=== PATIENT | female | born 1940 | race Caucasian/White ===

== ENCOUNTER → 2016-06-02 | Outpatient (CLI) | payer OTHER ==
[~2016-06-02] MED LIST: AMLO-110 PO; AMLO2.5T PO; ASPEC81 PO; ASPI325T39 PO; ASPI81TA28 PO; ATEN-173 PO; ATOR-24 PO; CALC-393 PO; CARB0.5D28 OPB; CHOL2000 PO; HYDR12.55 PO; HYDR1LOT6 EXT; LISI-461 PO; LSN20 PO; MAGNESIUM 64 PO; MAGNTAB4 PO; MULT-506 PO; OMEG10007 PO; OMEGCAP2 PO; POTA1TAB PO; POTA550T4 PO; RXC5 PO; [UNRECOGNIZED DRUG - CODE] TOP
[2016-06-02 12:21] LABS: BASO % 0.4 %; BASO ABS # 0.03 K/uL (0-0.2); COMPLETE YES; EOS % 0.7 %; HEMATOCRIT 38.6 % (37-47); IG% 0.1 %; LYMPH % 26.7 %; LYMPH ABS # 2.01 K/uL (1.2-3.4); MEAN CORPUSCULAR HEMOGLOBIN 31.8 pg (25-34); MEAN CORPUSCULAR HGB CONC 33.2 g/dl (32-36); MEAN PLATELET VOLUME 11.5 fL (7.4-10.4); MONO % 10.5 %; NEUT % 61.6 %; PLATELET COUNT 284 K/uL (130-400); RED BLOOD COUNT 4.02 M/uL (4.2-5.4); WHITE BLOOD COUNT 7.53 K/uL (4.8-10.8)
[2016-06-02 12:53] LABS: ALT/SGPT 29 U/L (12-78); AST/SGOT 26 U/L (15-37); BLOOD UREA NITROGEN 19 mg/dl (7-18); BUN/CREATININE RATIO 22.9 (10-20); CALCIUM 8.7 mg/dl (8.5-10.1); CARBON DIOXIDE 29 mmol/L (21-32); CHLORIDE 102 mmol/L (98-107); CREATININE 0.82 mg/dl (0.60-1.20); GLUCOSE 93 mg/dl (70-99); MAGNESIUM 1.9 mg/dl (1.8-2.4); POTASSIUM 3.7 mmol/L (3.5-5.1); SODIUM 139 mmol/L (136-145)
[2016-06-02 12:59] LABS: ALKALINE PHOSPHATASE 81 U/L (45-117); CHOLESTEROL 143 mg/dl (0-200); CHOLESTEROL/HDL RATIO 2.9; HDL CHOLESTEROL 49 mg/dl; LDL CHOLESTEROL CALCULATED 73 mg/dl; TRIGLYCERIDES 105 mg/dl (0-150); VERY LOW DENSITY LIPOPROT CALC 21 mg/dl
== END | disposition home or self-care (01) ==
LOC: C.LABPVFM 09:22
PROVIDERS: ATTEND Family Medicine
DX: I10 Essential (primary) hypertension (principal); E83.42 Hypomagnesemia; E87.8 Other disorders of electrolyte and fluid balance, not elsewhere classified; E78.5 Hyperlipidemia, unspecified

== ENCOUNTER → 2016-08-27 | Outpatient (CLI) | payer OTHER ==
--- NOTE | 2016-08-27 13:11 | MAMMOGRAPHY REPORT ---
BILATERAL DIGITAL SCREENING MAMMOGRAM WITH CAD: 08/27/2016 CLINICAL HISTORY: Routine screening. Patient has no complaints. TECHNIQUE: Current study was also evaluated with a Computer Aided Detection (CAD) system. Bilatera l CC and MLO views were obtained. COMPARISON: Comparison is made to exams dated: 08/26/2015 mammogram, 08/22/2014 mammogram, 03/03/2012 mammogram, 03/02/2011 mammogram, 02/24/2010 mammogram - [facility], and 01/08/2009. BREAST COMPOSITION: There are scattered areas of fibroglandular density in both breasts. FINDINGS: No suspicious masses, calcifications, or areas of architectural distortion are noted in e ither breast. There has been no significant interval change compared to prior exams. IMPRESSION: ACR BI-RADS CATEGORY 1: NEGATIVE There is no mammographic evidence of malignancy. A 1 year screening mammogram is recommended. The p atient will receive written notification of the results. Approximately 10% of breast cancers are not detected with mammography. A negative mammographic repor t should not delay biopsy if a clinically suggestive mass is present. Kaylie Lomeli M.D. /:08/27/2016 12:16:46 Head Of Marketing: Jose Angel YIN(Daryn)(Brenda), [facility] letter sent: Normal 1/2 BI-RADS Code: ACR BI-RADS Category 1: Negative
== END | disposition home or self-care (01) ==
LOC: C.MAMM 08:48
PROVIDERS: ATTEND Family Medicine
DX: Z12.31 Encounter for screening mammogram for malignant neoplasm of breast (principal)

== ENCOUNTER → 2016-12-30 | Outpatient (CLI) | payer OTHER ==
[~2016-12-30] MED LIST changes: -AMLO-110 PO; -ASPI325T39 PO; -ASPI81TA28 PO; -CARB0.5D28 OPB; -CHOL2000 PO; -HYDR12.55 PO; -LISI-461 PO; -MAGNESIUM 64 PO; -OMEG10007 PO; -POTA550T4 PO; -RXC5 PO
[2016-12-30 12:54] LABS: ALT/SGPT 26 U/L (12-78); AST/SGOT 22 U/L (15-37); BLOOD UREA NITROGEN 16 mg/dl (7-18); BUN/CREATININE RATIO 20.6 (10-20); CALCIUM 8.7 mg/dl (8.5-10.1); CARBON DIOXIDE 31 mmol/L (21-32); CHLORIDE 102 mmol/L (98-107); CREATININE 0.78 mg/dl (0.60-1.20); GLUCOSE 94 mg/dl (70-99); MAGNESIUM 1.8 mg/dl (1.8-2.4); SODIUM 138 mmol/L (136-145)
[2016-12-30 12:59] LABS: ALB/GLOB RATIO 1.1 (0.9-2); ALKALINE PHOSPHATASE 67 U/L (45-117); CHOLESTEROL 119 mg/dl (0-200); CHOLESTEROL/HDL RATIO 2.8; HDL CHOLESTEROL 42 mg/dl; LDL CHOLESTEROL CALCULATED 64 mg/dl; TRIGLYCERIDES 64 mg/dl (0-150); VERY LOW DENSITY LIPOPROT CALC 13 mg/dl
== END | disposition home or self-care (01) ==
LOC: C.LABPVFM 09:08
PROVIDERS: ATTEND Family Medicine
DX: E78.5 Hyperlipidemia, unspecified (principal); I10 Essential (primary) hypertension; E87.8 Other disorders of electrolyte and fluid balance, not elsewhere classified; E83.42 Hypomagnesemia

== ENCOUNTER → 2017-04-19 | Outpatient (CLI) | payer OTHER ==
[~2017-04-19] MED LIST changes: +AMLO-110 PO; -AMLO2.5T PO; -ASPEC81 PO; +ASPI325T39 PO; +ASPI81TA28 PO; +CARB0.5D28 OPB; +CHOL2000 PO; +HYDR12.55 PO; -HYDR1LOT6 EXT; +LISI-461 PO; -LSN20 PO; +MAGNESIUM 64 PO; -MAGNTAB4 PO; +OMEG10007 PO; -OMEGCAP2 PO; -POTA1TAB PO; +POTA550T4 PO
== END | disposition home or self-care (01) ==
LOC: C.LABPVFM 10:50
PROVIDERS: ATTEND Family Medicine
DX: E87.6 Hypokalemia (principal)

== ENCOUNTER 2017-04-27 09:38 | Inpatient (IN) | payer OTHER ==
[2017-04-06 12:15] VITALS: BMI 21.0
--- NOTE | 2017-04-06 12:52 | PAT Medication Instructions ---
Service Date Apr 06, 2017. Current Home Medication List Amlodipine (Norvasc), 5 MG PO QAM Aspirin (Aspirin Ec), 81 MG PO QPM Aspirin (Aspirin Ec), 325-650 MG PO PRN Atenolol (Tenormin), 50 MG PO QAM Atorvastatin (Lipitor), 40 MG PO HS Calcium Carbonate (Calcium), 600 MG PO BID Carboxymethylcellulose Sodium (Refresh Tears), 1 DROP OPB PRN Cholecalciferol (Vitamin D3), 1 CAP PO 2XWEEK Fish Oil ([place]-3), 1 CAP PO TID Hydrochlorothiazide (Hydrochlorothiazide), 1 TAB PO QAM Lisinopril (Zestril), 10 MG PO BID Metronidazole (Metrolotion), 1 APPLN TOP BID PRN for PRN Multivitamin (Multivitamin), 1 TAB PO QAM Potassium Gluconate (Potassium Gluconate), 550 MG PO QAM [Magnesium 64], 1 TAB PO QAM Medication Instructions For Your Scheduled Surgery - Hold the following medications 2 weeks prior to surgery: Fish Oil ([place]-3), 1 CAP PO TID - Hold the following medications 7 days prior to surgery per surgeon's instructions: Aspirin (Aspirin Ec), 325-650 MG PO PRN - Hold the following medications 24 hours prior to surgery: Lisinopril (Zestril), 10 MG PO BID Metronidazole (Metrolotion), 1 APPLN TOP BID PRN for PRN - Hold the following medications the morning of surgery: Calcium Carbonate (Calcium), 600 MG PO BID Multivitamin (Multivitamin), 1 TAB PO QAM Potassium Gluconate (Potassium Gluconate), 550 MG PO QAM [Magnesium 64], 1 TAB PO QAM Cholecalciferol (Vitamin D3), 1 CAP PO 2XWEEK Hydrochlorothiazide (Hydrochlorothiazide), 1 TAB PO QAM - Take the following medications the morning of surgery with a sip of water OTHERWISE NOTHING TO EAT OR DRINK AFTER MIDNIGHT: Atenolol (Tenormin), 50 MG PO QAM Amlodipine (Norvasc), 5 MG PO QAM Carboxymethylcellulose Sodium (Refresh Tears), 1 DROP OPB PRN - Take the following medications as scheduled the night before surgery: Aspirin (Aspirin Ec), 81 MG PO QPM Atorvastatin (Lipitor), 40 MG PO HS Calcium Carbonate (Calcium), 600 MG PO BID Carboxymethylcellulose Sodium (Refresh Tears), 1 DROP OPB PRN If you have any questions please call us at [phone] or [phone] or [phone]
[2017-04-06 13:12] LABS: BASO % 0.3 %; BASO ABS # 0.02 K/uL (0-0.2); COMPLETE YES; HEMATOCRIT 39.7 % (37-47); IG% 0.3 %; LYMPH ABS # 2.24 K/uL (1.2-3.4); MEAN CELL VOLUME 97.3 fL (80-100); MEAN CORPUSCULAR HEMOGLOBIN 32.8 pg (25-34); MEAN CORPUSCULAR HGB CONC 33.8 g/dl (32-36); MEAN PLATELET VOLUME 10.3 fL (7.4-10.4); MONO % 8.1 %; NEUT % 62.3 %; PLATELET COUNT 262 K/uL (130-400); RED BLOOD COUNT 4.08 M/uL (4.2-5.4)
[2017-04-06 13:35] LABS: URINE APPEARANCE CLEAR (CLEAR); URINE BILIRUBIN NEG (NEG); URINE COLOR YELLOW; URINE EPITHELIAL CELL AUTO 0-5 /lpf (0-5); URINE NITRITE NEG (NEG); URINE PH 7.5 (4.5-7.5); URINE SPECIFIC GRAVITY 1.013 (1.000-1.030); UROBILINOGEN NEG (NEG); ZZUR CULT IF INDIC CLEAN CATCH NO
[2017-04-06 13:40] LABS: MANUAL MICROSCOPIC REQUIRED? NO; REVIEW REQ? NO
--- NOTE | 2017-04-06 13:59 | DIAGNOSTIC IMAGING REPORT ---
CHEST PREADMISSION(PA/LAT) HISTORY: 77 years-old Female PAT preoperative exam. No acute chest complaints. COMPARISON: Chest radiograph 03/28/2016 TECHNIQUE: PA and lateral views of the chest FINDINGS: Cardiac silhouette is upper limits of normal, unchanged. Atherosclerosis of the aorta. No pneumothorax, pleural effusion, focal airspace consolidation or overt pulmonary edema. Mild hyperinflation. Bones of the chest are grossly intact. Degenerative changes are seen about the shoulders and spine. IMPRESSION: No acute cardiopulmonary process. The above report was generated using voice recognition software. It may contain grammatical, syntax or spelling errors. Electronically signed by: Eleazar Coyne M.D. 04/06/2017 1:58 PM Dictated Date/Time: 04/06/2017 1:56 PM
[2017-04-06 15:43] LABS: BUN/CREATININE RATIO 16.9 (10-20); CALCIUM 8.9 mg/dl (8.5-10.1); CREATININE 0.85 mg/dl (0.60-1.20); POTASSIUM 3.3 mmol/L (3.5-5.1)
[~2017-04-27] VITALS: Ht 154.9 cm; Wt 53.0 kg
[2017-04-27] VITALS (10 sets, daily range): BP systolic 116–169; BP diastolic 64–90; PULSE 57–99; TEMP 33.7–36.8; O2SAT 94–100; Ht 154.9 cm; Wt 53.0 kg
[~2017-04-27 09:38] MED LIST changes: +ATROPINE SULFATE 0.1 MG/ML 5ML SYR IV PRN; +CEFAZOLIN 1000MG IV PUSH 5 ML IV SCH; +EpHEDrine SULFATE INJ 50 MG/ML AMP IV PRN; +FENTANYL CITRATE INJ 50 MCG/1 ML 2 ML VIAL IV PRN; +HYDROmorphone INJ 1 MG/ML SYR IV PRN; +LACTATED RINGER'S 1000ML 1,000 ML IV SCH; +ONDANSETRON INJ 2 MG/ML 2 ML VIAL IV PRN
--- NOTE | 2017-04-27 11:16 | History & Physical Bridge Note ---
H&P Re-Evaluation Bridge Note: I have examined the patient, reviewed the History & Physical and in the interval since the performance of the History & Physical I have noted the following changes of clinical significance: No changes noted
--- NOTE | 2017-04-27 11:17 | History and Physical ---
History & Physical Date Apr 27, 2017. Chief Complaint Back and leg pain History of Present Illness The patient is a 77 year old female with complaints of James leg pain Past Medical/Surgical History Medical Problems: (1) Cataract removal (2) Diverticulosis (3) HTN (hypertension) (4) TIA (transient ischemic attack) Additional History Hepatic Disease: No Endocrine Disorder: No Kidney Disease: No Hypertension: Yes Heart Disease: No Bleeding Tendencies: No Infectious Diseases: No Allergies Coded Allergies: Adhesives (Verified Allergy, Unknown, RED SKIN WITH TAPE, 04/06/17) Sulfa Antibiotics (Verified Adverse Reaction, Unknown, nausea, 04/06/17) Home Medications Scheduled Amlodipine (Norvasc), 5 MG PO QAM Aspirin (Aspirin Ec), 81 MG PO QPM Atenolol (Tenormin), 50 MG PO QAM Atorvastatin (Lipitor), 40 MG PO HS Calcium Carbonate (Calcium), 600 MG PO BID Carboxymethylcellulose Sodium (Refresh Tears), 1 DROP OPB PRN Cholecalciferol (Vitamin D3), 1 CAP PO 2XWEEK Fish Oil ([place]-3), 1 CAP PO TID Hydrochlorothiazide (Hydrochlorothiazide), 1 TAB PO QAM Lisinopril (Zestril), 10 MG PO BID Multivitamin (Multivitamin), 1 TAB PO QAM Potassium Gluconate (Potassium Gluconate), 550 MG PO QAM [Magnesium 64], 1 TAB PO QAM Scheduled PRN Metronidazole (Metrolotion), 1 APPLN TOP BID PRN for PRN Physical Examination Skin: warm/dry, no rash Eyes: normal inspection, EOMI, sclerae normal ENT: normal ENT inspection, pharynx normal Head: normocephalic, atraumatic Neck: supple, no adenopathy, trachea midline Respiratory/Chest: lungs clear, normal breath sounds, no respiratory distress Cardiovascular: regular rate, rhythm, no edema, no murmur Abdomen / GI: normal bowel sounds, non tender Back: normal inspection Extremities: normal inspection, normal range of motion Neurologic/Psych: no motor/sensory deficits, alert, normal reflexes, oriented x 3 Diagnosis Lumbar spinal stenosis with spondylolisthesis Plan of Treatment L4 5 lumbar decompression and fusion
[2017-04-27] MEDS ORDERED: BACITRACIN 50000 UNIT VIAL ONE (11:43)
[2017-04-27] MEDS ORDERED: BUPIVACAINE/EPINEPHRINE 0.5% MPF 1:200,000 30 ML VIAL ONE (11:43)
[2017-04-27] MEDS ORDERED: MIDAZOLAM HCL 1 MG/ML 2ML VIAL ONE (11:47)
[2017-04-27] MEDS ORDERED: FENTANYL CITRATE INJ 50 MCG/1 ML 2 ML VIAL ONE ×2 (11:47→12:23)
[2017-04-27] MEDS ORDERED: HYDROmorphone INJ 2 MG/ML SYR/VIAL ONE ×2 (12:23→13:30)
[2017-04-27] MEDS ORDERED: LIDOCAINE HCL 2% 2 ML VIAL (20MG/ML) ONE (13:17)
[2017-04-27] MEDS ORDERED: ONDANSETRON INJ 2 MG/ML 2 ML VIAL ONE ×2 (13:17→13:32)
[2017-04-27] MEDS ORDERED: PROPOFOL IV EMULSION 10 MG/ML 20 ML VIAL IV ONE (13:17)
[2017-04-27] MEDS ORDERED: DEXAMETHASONE SOD INJ 4 MG/ML VIAL ONE (13:17)
[2017-04-27] MEDS ORDERED: SODIUM CHLORIDE 0.9% 1000ML 1,000 ML IV SCH (13:27)
[2017-04-27] MEDS ORDERED: FLOSEAL HEMOSTATIC MATRIX 10ML TOP ONE (13:29)
[2017-04-27] MEDS ORDERED: CEFAZOLIN IV 1,000 MG in DEXTROSE 5% 50ML 50 ML IV SCH (13:30)
[2017-04-27] MEDS ORDERED: PROMETHAZINE HCL INJ 12.5 MG in SODIUM CHLORIDE 0.9% 50ML 50 ML IV PRN (13:30)
[2017-04-27] MEDS ORDERED: NALOXONE HCL 0.4 MG/1 ML VIAL/CARP IV PRN ×2 (13:30)
[2017-04-27] MEDS ORDERED: ALUMINUM/MAGNESIUM SUSP 30 ML UDC PO PRN (13:30)
[2017-04-27] MEDS ORDERED: hydrOXYzine HCL 25 MG TAB PO PRN (13:30)
[2017-04-27] MEDS ORDERED: LORAZEPAM 0.5 MG TAB PO PRN (13:30)
[2017-04-27] MEDS ORDERED: SOD PHOSPHATE/SOD BIPHOSPHATE ENEMA 132 ML BTL PR PRN (13:30)
[2017-04-27] MEDS ORDERED: ONDANSETRON INJ 2 MG/ML 2 ML VIAL IV PRN (13:30)
[2017-04-27] MEDS ORDERED: FAMOTIDINE 20 MG TAB PO PRN (13:30)
[2017-04-27] MEDS ORDERED: LORAZEPAM INJ 0.5 MG in SYRINGE 0.75 ML IV PRN (13:30)
[2017-04-27] MEDS ORDERED: DO NOT ADMINISTER PNEUMOCOCCAL VACCINE PRN ×2 (13:30)
[2017-04-27] MEDS ORDERED: METOCLOPRAMIDE HCL INJ 5 MG/ML 2 ML VIAL IV PRN (13:30)
[2017-04-27] MEDS ORDERED: MAGNESIUM HYDROXIDE SUSP 30 ML UDC PO PRN (13:30)
[2017-04-27] MEDS ORDERED: DO NOT ADMINISTER FLU VACCINE PRN ×3 (13:30)
[2017-04-27] MEDS ORDERED: BISACODYL 10 MG SUPP PR PRN (13:30)
[2017-04-27] MEDS ORDERED: ACETAMINOPHEN IV 100 ML IV PRN (13:30)
[2017-04-27] MEDS ORDERED: PHENYLEPHRINE 100MCG/ML 5ML SYR ONE (13:32)
[2017-04-27] MEDS ORDERED: KETOROLAC TROMETHAMINE 30 MG/ML VIAL ONE (13:32)
[2017-04-27] MEDS ORDERED: GLYCOPYRROLATE INJ 0.2 MG/ML VIAL ONE (13:32)
[2017-04-27] MEDS ORDERED: NEOSTIGMINE METHYLSULFATE 1 MG/ML 10ML VIAL ONE (13:32)
--- NOTE | 2017-04-27 13:35 | [facility] Operative Report ---
Operative Report Operative Date Apr 27, 2017. Pre-Operative Diagnosis Lumbar Spinal Stenosis with Spondylolisthesis Post-Operative Diagnosis Lumbar Spinal Stenosis with Spondylolisthesis Procedure(s) Performed #1 lumbar decompression medial facetectomies foraminotomies L3 4 L4 5. #2 history spinal fusion L4 5. #3 placement posterior instrumentation L4 5. #4 interbody fusion L4 5. #5 placement peek cage 12 x 22 mm L4 5. #6 placement of locally harvested morcellized autograft in the posterior lateral gutters. #7 placement infuse collagen sponge combined Master graft in the posterior lateral gutters and ostial amp bone graft in the interbody space. Surgeon Dr. Alvares Brush Painter Surgeon(s) LEONARDO Johnson Estimated Blood Loss 120mL Findings Severe spinal stenosis spinal listhesis with herniated nucleus pulposus Specimens none per surgeon Description of Procedure Patient was met with preoperatively case discussed all questions addressed. After informed consent was obtained patient was taken operative suite underwent intubation placed in a prone position on the Sandeep table on top Fran frame. All bony prominences were well-padded eyes inspected to ensure no external pressure placed upon them. This point the lumbar spines prepped draped in normal sterile fashion. Sharp dissection with the assistance of Bovie cautery was performed onto an exposing the lamina and transverse processes of L4 and L5. From a caudal cephalad fashion complete laminectomy of L4 partial laminectomy of L3 was performed addressing severe lateral recess and foraminal disease including foraminal disc herniation on the right. After complete decompression pedicle screws were placed in L4-L5 bilaterally with assistance of fluoroscopy in the purposes ayden placed. Through a transforaminal approach on the right a complete discectomy of L45 was performed the end plates were then curetted to subcortical bleeding bone and a 12 x 22 mm peek cage filled with ostial amp bone graft tapped in position. The rods were then compressed locked and final position bilaterally. The transverse processes of L4 and L5 were burred to subcortical bleeding bone. Infuse collagen sponge mask graft locally harvested morcellized R graft was placed in the posterior lateral gutters. 15 round ANTHONY drain inserted. Incision was then closed with 1 Vicryl in the fascia 2-0 Vicryl simultaneous the 4 Monocryl for final skin closure Steri-Strip sterile dressings placed. Patient we can take PACU stable condition. Please note Jigna Welsh was present at the entire procedure involved in patient positioning complex portions of the surgery and final skin closure. I attest to the content of the Intraoperative Record and any orders documented therein. Any exceptions are noted below.
[2017-04-27] MEDS ORDERED: ROCURONIUM BROMIDE 10 MG/ML 5 ML VIAL IV ONE (13:50)
[2017-04-27] MEDS ORDERED: HYDROmorphone HCL 0.5MG/ML 50 ML CASSETTE ONE (13:53)
--- NOTE | 2017-04-27 14:21 | DIAGNOSTIC IMAGING REPORT ---
LUMBAR SPINE 2 OR 3 VIEW CLINICAL HISTORY: L4-5 DECOMPRESSION/FUSION/INTERBODY TECHNIQUE: Image intensifier COMPARISON STUDY: None FINDINGS: Findings consistent with an L4-L5 laminectomy and fusion. Disc spacers present. Temporary sponges are posterior to the operative site are noted. IMPRESSION: L4-L5 laminectomy and fusion The above report was generated using voice recognition software. It may contain grammatical, syntax or spelling errors. Electronically signed by: Angelo Ivy M.D. 04/27/2017 2:20 PM Dictated Date/Time: 04/27/2017 2:17 PM
--- NOTE | 2017-04-27 14:43 | Anesthesiology Progress Note ---
Anesthesia Post Op Note Date & Time Apr 27, 2017 at 14:42 Vital Signs Pain Intensity: 0 Vital Signs Past 12 Hours Date Time Temp Pulse Resp B/P (MAP) Pulse Ox O2 Delivery O2 Flow Rate FiO2 04/27/17 14:25 36.2 63 14 144/72 99 Nasal Cannula 3 04/27/17 14:15 62 23 145/70 100 Nasal Cannula 3 04/27/17 14:05 62 19 142/72 100 Oxymask 10 04/27/17 13:55 65 17 123/68 99 Oxymask 10 04/27/17 13:45 36.1 84 16 147/79 100 Oxymask 10 04/27/17 10:09 36.4 60 20 169/90 99 Room Air Notes Mental Status: alert / awake / arousable, participated in evaluation Pt Amnestic to Procedure: Yes Nausea / Vomiting: adequately controlled Pain: adequately controlled Airway Patency, RR, SpO2: stable & adequate BP & HR: stable & adequate Hydration State: stable & adequate Anesthetic Complications: no major complications apparent
[2017-04-27] MEDS: HYDROmorphone HCL 0.5MG/ML 50 ML CASSETTE IV PRN ×2 (14:55→22:55)
[2017-04-27] MEDS ORDERED: HydrALAZINE HCL 20 MG/ML VIAL IV. PRN (16:00)
[2017-04-27] MEDS ORDERED: LSN20 PO (16:06)
--- NOTE | 2017-04-27 16:08 | Medical Consult ---
Consultation Date of Consultation: Apr 27, 2017. Attending Physician: Frandy Alvares D.O. Reason for Consultation: Medical management History of Present Illness Patient is a 77 y/o female, with PMHx of HTN, paroxysmal a.fib , h/o TIA, hypokalemia , and hypomagnesemia , s/p lumbar surgery by Dr. Alvares on 04/27. Hospitalist team was consulted for medical management. Patient is feeling well postop. No nausea or vomiting. She has not eaten since the procedure yet. No flatus/BM postop. Pain is well controlled. Patient states she is very active- her and her walk 5-6 times per week averaging 50 miles per week. Patient denies any fever, chills, sweats, lightheadedness, dizziness, vision changes, CP, palpitations, edema, SOB, wheezing, cough, abdominal pain, nausea, vomiting, diarrhea, urinary symptoms, melena, numbness/tingling, weakness, muscle/joint pain, anxiety/depression, active bleeding, or new skin discoloration/changes. Past Medical/Surgical History Medical Problems: HTN paroxysmal a.fib ?h/o TIA- February 2016 w/ negative workup hypokalemia hypomagnesemia Surgical History: left cataract surgery anal fissurectomy basal cell carcinoma removed from her back appendectomy Family History FH: heart disease Hypertension Social History Smoking Status: Never Smoker Marital Status: Housing Status: lives with significant other Occupation Status: retired Allergies Coded Allergies: Adhesives (Verified Allergy, Unknown, RED SKIN WITH TAPE, 04/06/17) Sulfa Antibiotics (Verified Adverse Reaction, Unknown, nausea, 04/06/17) Home Medications Reported Home Medications Medications Dose Route/Sig Max Daily Dose Days Date Category Dose Instructions Aspirin Ec (Aspirin) 81 Mg Tab 81 Mg PO QPM 04/06/17 Reported Refresh Tears (Carboxymethylcellulose Sodium) 0.5 % Richard 1 Drop OPB PRN 04/06/17 Reported Vitamin D3 (Cholecalciferol) 2,000 Unit Cap 1 Cap PO 2XWEEK 90 04/06/17 Reported AM TUESDAY AND TUESDAY Potassium Gluconate 550 Mg Tab 550 Mg PO QAM 04/06/17 Reported [Magnesium 64] 1 Tab PO QAM 04/06/17 Reported [place]-3 (Fish Oil) 1 Ea Cap 1 Cap PO TID 04/06/17 Reported Zestril (Lisinopril) 10 Mg Tab 10 Mg PO BID 04/06/17 Reported Hydrochlorothiazide 12.5 Mg Tab 1 Tab PO QAM 90 04/06/17 Reported Norvasc (Amlodipine Besylate) 5 Mg Tab 5 Mg PO QAM 04/06/17 Reported Lipitor (Atorvastatin Calcium) 40 Mg Tab 40 Mg PO HS 03/28/16 Reported Multivitamin (Multivitamins) Tab 1 Tab PO QAM 03/24/16 Reported Metrolotion (Metronidazole) 59 Ml Lotn 1 Appln TOP BID PRN 08/08/13 Reported Calcium (Calcium Carbonate) 600 Mg Tab 600 Mg PO BID 08/08/13 Reported Tenormin (Atenolol) 25 Mg Tab 50 Mg PO QAM 08/08/13 Reported Current Inpatient Medications Current Inpatient Medications Medications (Trade) Dose Ordered Sig/Nata Route Start Time Stop Time Status Last Admin Dose Admin Lactated Ringer's 1,000 ml @ 15 mls/hr Q24H IV 04/27/17 06:00 04/28/17 05:59 04/27/17 10:25 15 MLS/HR Cefazolin Sodium 5 ml @ 1.667 mls/ min PREOP IV 04/27/17 06:00 04/27/17 18:00 Dexamethasone Sodium Phosphate 6 mg/Syringe 1.5 ml @ 1 mls/min Q8H IV 04/27/17 22:00 04/28/17 14:02 Promethazine HCl 12.5 mg/Sodium Chloride 50.5 ml @ 202 mls/hr Q6H PRN IV 04/27/17 13:30 05/27/17 13:29 Ondansetron HCl (Zofran Inj) 4 mg Q6H PRN IV 04/27/17 13:30 05/27/17 13:29 Metoclopramide HCl (Reglan Inj) 10 mg Q6H PRN IV 04/27/17 13:30 05/27/17 13:29 Lorazepam (Ativan Tab) 0.5 mg Q8H PRN PO 04/27/17 13:30 05/27/17 13:29 Lorazepam 0.5 mg/ Syringe 1 ml @ 1 mls/min Q8H PRN IV 04/27/17 13:30 05/27/17 13:29 Pneumococcal Polysaccharide Vaccine 1 ea PRN PRN N/A 04/27/17 13:30 05/27/17 13:29 Influenza Virus Vacc Triv Types A&B 1 ea PRN PRN N/A 04/27/17 13:30 05/27/17 13:29 Polyethylene (Miralax Powder Packet) 17 gm Q6 PO 04/29/17 06:00 05/29/17 05:59 Bisacodyl (Dulcolax Supp) 10 mg DAILY PRN MN 04/27/17 13:30 05/27/17 13:29 Magnesium Hydroxide (Milk Of Magnesia Susp) 30 ml DAILY PRN PO 04/27/17 13:30 05/27/17 13:29 Hydromorphone HCl (Dilaudid Inj) 0.5 mg Q3H PRN IV 04/28/17 06:00 05/12/17 05:59 Oxycodone HCl (Roxicodone Immediate Rel Tab) 5-10mg prn moderate to sev... Q4H PRN PO 04/28/17 06:00 05/12/17 05:59 Cefazolin Sodium 1000 mg/Dextrose 55 ml @ 100 mls/hr Q8H IV 04/27/17 13:30 04/27/17 22:02 UNV Lactated Ringer's 1,000 ml @ 150 mls/hr Q6H40M IV 04/27/17 16:00 05/27/17 15:59 Acetaminophen (Tylenol Tab) 1,000 mg Q8H PRN PO 04/27/17 13:30 05/27/17 13:29 Acetaminophen 100 ml @ 400 mls/hr Q8H PRN IV 04/27/17 13:30 05/27/17 13:29 Naloxone HCl (Narcan Inj) 0.1 mg Q5M PRN IV 04/27/17 13:30 05/27/17 13:29 Senna/Docusate Sodium (Senokot S Tab) 2 tab HS PO 04/27/17 21:00 05/27/17 20:59 Sodium Biphosphate/ Sodium Phosphate (Fleet Enema) 132 ml ONE PRN MN 04/27/17 13:30 05/27/17 13:29 Hydroxyzine HCl (Vistaril Tab) 25 mg Q8H PRN PO 04/27/17 13:30 05/27/17 13:29 Al Hydroxide/Mg Hydroxide (Maalox Susp) 30 ml Q6H PRN PO 04/27/17 13:30 05/27/17 13:29 Famotidine (Pepcid Tab) 20 mg Q12 PRN PO 04/27/17 13:30 05/27/17 13:29 Diphenhydramine HCl (Benadryl Cap) 25 mg Q6H PRN PO 04/27/17 13:30 05/27/17 13:29 Miscellaneous Information (Discontinue MARKETING LIAISON) 1 ea ONE ONCE N/A 04/28/17 06:00 04/28/17 06:01 Naloxone HCl (Narcan Inj) 0.1 mg Q5M PRN IV 04/27/17 13:30 04/28/17 06:00 Hydromorphone HCl (Dilaudid Desk Clerk) 25 mg PRN PRN IV 04/27/17 13:30 04/28/17 06:00 04/27/17 14:55 25 MG Sodium Chloride 1,000 ml @ 15 mls/hr Q24H IV 04/27/17 13:27 04/28/17 06:00 Amlodipine Besylate (Norvasc Tab) 5 mg QAM PO 04/28/17 09:00 05/28/17 08:59 Aspirin (Ecotrin Tab) 81 mg QPM PO 04/27/17 21:00 05/27/17 20:59 Atenolol (Tenormin Tab) 50 mg QAM PO 04/28/17 09:00 05/28/17 08:59 Atorvastatin Calcium (Lipitor Tab) 40 mg HS PO 04/27/17 21:00 05/27/17 20:59 Lisinopril (Zestril Tab) 10 mg BID PO 04/27/17 21:00 05/27/17 20:59 Hydrochlorothiazide (Hydrochlorothiazide Tab) 12.5 mg QAM PO 04/28/17 09:00 05/28/17 08:59 Hydromorphone HCl (Dilaudid Inj) 1 mg Q3H PRN IV 04/28/17 06:00 05/12/17 05:59 Physical Exam Date Time Temp Pulse Resp B/P (MAP) Pulse Ox O2 Delivery O2 Flow Rate FiO2 04/27/17 15:35 33.7 57 16 153/83 (106) 100 Nasal Cannula 2.0 04/27/17 15:00 36.5 99 18 153/82 (105) 99 Nasal Cannula 2.0 04/27/17 14:45 59 15 139/79 100 Nasal Cannula 3 04/27/17 14:35 60 14 142/74 100 Nasal Cannula 3 04/27/17 14:25 36.2 63 14 144/72 99 Nasal Cannula 3 04/27/17 14:15 62 23 145/70 100 Nasal Cannula 3 04/27/17 14:05 62 19 142/72 100 Oxymask 10 04/27/17 13:55 65 17 123/68 99 Oxymask 10 04/27/17 13:45 36.1 84 16 147/79 100 Oxymask 10 04/27/17 10:09 36.4 60 20 169/90 99 Room Air General Appearance: no apparent distress Head: normocephalic, atraumatic Eyes: normal inspection, PERRL ENT: hearing grossly normal Neck: supple Respiratory/Chest: lungs clear, no respiratory distress, no accessory muscle use Cardiovascular: regular rate, rhythm Abdomen/GI: normal bowel sounds, non tender, soft Back: normal inspection Extremities/Musculoskelatal: no calf tenderness, no pedal edema, + pertinent finding (SCDs on) Neurologic/Psych: alert, normal mood/affect, oriented x 3 Skin: normal color, warm/dry, no rash Assessment & Plan Patient is a 77 y/o female, with PMHx of HTN, paroxysmal a.fib , h/o TIA, hypokalemia , and hypomagnesemia , s/p lumbar surgery by Dr. Alvares on 04/27. s/p lumbar surgery by Dr. Alvares on 04/27: - Surgical management, pain management, PT/OT, and DVT prophylaxis as per primary team - Follow postop CBC and PRP - Encourage incentive spirometer - Bowel regimen ordered HTN, paroxysmal a.fib, HLD- follows w/ Dr. Mohan : - Hold Lisinopril 120 mg daily and HCTZ 12.5 mg daily pending postop PRP/volume status - Continue Norvasc 5 mg daily, Atenolol 50 mg daily, Lipitor 40 mg HS - Hydralazine IV PRN Hypokalemia: Continue Potassium supplement Hypomagnesemia: Continue Mag supplement GI prophylaxis: Pepcid DVT prophylaxis: ASA 81 mg daily as per surgical team Code Status: LEVEL I, FULL Dispo: As per primary team Thank you for this consultation. We will continue to follow through hospital stay. I agree with PA assessment and plan and have seen and examined pt myself VSS Resting comfortably in bed Pain controlled HTN stable, cont home meds Will check PRP Dispo and DVT ppx per primary team
[2017-04-27] MEDS ORDERED: NURSING VERBAL MED ORDER ONE ×2 (19:00→21:30)
[2017-04-27] MEDS: CEFAZOLIN IV 1,000 MG in SYRINGE 0 ML IV SCH (19:44)
[2017-04-27] MEDS ORDERED: LISINOPRIL 10 MG TAB PO SCH (21:00)
[2017-04-27] MEDS: LACTATED RINGER'S 1000ML 1,000 ML IV SCH (21:18)
[2017-04-27] MEDS: ASPIRIN 81 MG ECTAB PO SCH (21:19)
[2017-04-27] MEDS: DOCUSATE SODIUM/SENNA 50/8.6MG TAB PO SCH (21:19)
[2017-04-27] MEDS: ATORVASTATIN 40 MG TAB PO SCH (21:19)
[2017-04-27] MEDS: DEXAMETHASONE INJ 6 MG in SYRINGE 0 ML IV SCH (21:21)
[2017-04-27] MEDS: POTASSIUM CHLORIDE 10 MEQ TABCR PO SCH (21:22)
[2017-04-28 03:20] VITALS: BP 114/66; PULSE 81; TEMP 36.8; O2SAT 94
[2017-04-28] MEDS: CEFAZOLIN IV 1,000 MG in SYRINGE 0 ML IV SCH (03:30)
[2017-04-28] MEDS: LACTATED RINGER'S 1000ML 1,000 ML IV SCH (03:30)
[2017-04-28] MEDS: DEXAMETHASONE INJ 6 MG in SYRINGE 0 ML IV SCH ×2 (05:53→13:57)
[2017-04-28] MEDS ORDERED: HYDROmorphone INJ 1 MG/ML SYR IV PRN (06:00)
[2017-04-28] MEDS ORDERED: OXYCODONE HCL IR 5 MG TAB (IMMEDIATE RELEASE) PO PRN (06:00)
[2017-04-28] MEDS ORDERED: NURSING VERBAL MED ORDER ONE (06:00)
[2017-04-28] MEDS ORDERED: HYDROmorphone INJ 0.5 MG/0.5 ML SYR IV PRN (06:00)
[2017-04-28] MEDS ORDERED: DC PCA ONE (06:00)
[2017-04-28 07:34] VITALS: BP 101/62; PULSE 72; TEMP 36.4; O2SAT 93
[2017-04-28 07:39] LABS: BASO % 0.1 %; BASO ABS # 0.01 K/uL (0-0.2); COMPLETE YES; HEMATOCRIT 31.7 % (37-47); IG% 0.4 %; LYMPH % 7.1 %; LYMPH ABS # 1.01 K/uL (1.2-3.4); MEAN CELL VOLUME 95.8 fL (80-100); MEAN CORPUSCULAR HEMOGLOBIN 31.4 pg (25-34); MEAN CORPUSCULAR HGB CONC 32.8 g/dl (32-36); MEAN PLATELET VOLUME 10.8 fL (7.4-10.4); MONO % 5.6 %; NEUT % 86.8 %; PLATELET COUNT 247 K/uL (130-400); RED BLOOD COUNT 3.31 M/uL (4.2-5.4); WHITE BLOOD COUNT 14.19 K/uL (4.8-10.8)
[2017-04-28] MEDS ORDERED: RXC5 PO (07:42)
--- NOTE | 2017-04-28 07:43 | Discharge Instructions ---
Discharge Instructions Date of Service Apr 28, 2017. Admission Reason for Admission: Lumbar Spinal Stenosis Discharge Discharge Diagnosis / Problem: lumbar spinal stenosis Discharge Goals Goal(s): Improve function Activity Recommendations Activity Limitations: per Instructions/Follow-up section . Instructions / Follow-Up Instructions / Follow-Up ACTIVITY RECOMMENDATIONS: SELF CARE INSTRUCTIONS AFTER THORACIC/LUMBAR FUSIONS 1. You may walk to your tolerance. It is good exercise for your legs and back. Expect some back and intermittent leg aches and pains. 2. You may perform "counter-top" level activities (make a sandwich, ayaan with a project, etc.). 3. No bending or lifting of more than 10 pounds or back twisting of any nature (roll like a log when turning in bed). 4. You may ride in a car for 20-30 minutes at a time. No driving until after your first visit with your doctor. 5. Frequent changes of position and restricting sitting to 30 minutes at a time will help limit the amount of back spasms and stiffness you may experience. 6. You may discontinue the use of ambulatory aids (cane, crutches, etc.) once your strength and confidence allow. 7. You may oxidized finish plater the shower and let water strike your incision when you arrive home at least once daily. Do not take a tub bath, sit in a hot tub or go into a swimming pool until after your first recheck in the office. SPECIAL CARE INSTRUCTIONS: VERY IMPORTANT TO READ AND REVIEW A. Your surgical incision has been closed with a cosmetic suture under the skin that will dissolve in about 6 weeks. In 14 days, you can use a pair of clean scissors and cut the suture that is left outside of the skin at the ends of your incision. 1. The small skin tapes can be removed 7 days after surgery if they have not fallen off by that point. 2. You may keep the wound open to air as much as possible to promote healing after post-op day number 5 unless told otherwise by your doctor. 3. If you think the wound looks like it is becoming infected (redness or worsening drainage) and/or you are experiencing fever, chill or worsening back pain and muscle spasms, contact the office so that we may evaluate you as soon as possible. B. Complications are uncommon, but please contact us if you have any signs or symptoms of: 1. wound infection (fever higher than 102.5 degrees F, redness, separation of wound, drainage, or increasing pain from the incision) 2. blood clots in legs (pain, swelling, redness and warmth in legs) 3. urinary tract infection (fever higher than 102.5 degrees F, burning upon urination or increased frequency of urination) 4. nerve problems (inability to walk on your toes or heels, numbness, loss of bowel or bladder control) 5. any other symptoms that concern you C. Please call the office at if you have any concerns or questions about your operation or recovery. D. No smoking! Smoking drastically decreases the chance of a solid fusion. E. Do not take any anti-inflammatory medications (Indocin, Advil, Motrin, Aspirin, Naprosyn, etc.) as these may inhibit the chance of a solid fusion. Tylenol is okay to take for pain. MANAGING PAIN AFTER SPINAL SURGERY 1. Narcotic medication is intended for short-term use and will be provided for surgical pain. Surgical pain usually lasts for a period of 4-6 weeks. Narcotic medication includes Percocet, Vicodin, Darvocet, Tylenol #3 or Lortab. 2. Longer-term pain is more appropriately treated with non-narcotic medication such as Tylenol ES. 3. Muscle spasm is not appropriately treated with narcotics. Muscle relaxers such as Soma, Flexeril or Skelaxin can be used along with Tylenol ES. 4. Remember that we all live with some "aches and pains". This is not unusual or uncommon after an injury or as we get older. a. Back pain is expected and may include muscle spasms for 4 to 6 weeks after surgery. The pain should gradually improve. If the pain worsens for no apparent reason, please contact the office. b. Intermittent leg pain may also be experienced and should not be concerned about unless it worsens for no apparent reason. If so, please contact the office. 5. We will provide appropriate medication within the normal guidelines of their prescribed use. We will also be very cautious and aware of potential abuse and extended duration of patients' medication needs. a. Pain medications are for your comfort and to assist with sleep and rest so that the tissue can heal. They are not provided in order to return to normal activity and should not be used through the day. To do so or worsening pain at night can result from ongoing tissue damage and development of tolerance to the prescribed medicine. 6. Please allow 2-3 days to process refills. Prescriptions will not be mailed but must be picked up at the office. FOLLOW UP VISIT: Keep your scheduled follow-up appointment. Any questions, please call the office at . Current Hospital Diet Patient's current hospital diet: Regular Diet Discharge Diet Recommended Diet: Regular Diet Procedures Procedures Performed: #1 lumbar decompression medial facetectomies foraminotomies L3 4 L4 5. #2 history spinal fusion L4 5. #3 placement posterior instrumentation L4 5. #4 interbody fusion L4 5. #5 placement peek cage 12 x 22 mm L4 5. #6 placement of locally harvested morcellized autograft in the posterior lateral gutters. #7 placement infuse collagen sponge combined Master graft in the posterior lateral gutters and ostial amp bone graft in the interbody space. Pending Studies Studies pending at discharge: no Medical Emergencies . Who to Call and When: Medical Emergencies: If at any time you feel your situation is an emergency, please call 911 immediately. . Non-Emergent Contact Non-Emergency issues call your: Primary Care Provider . "Provider Documentation" section prepared by Frandy Alvares. . VTE Core Measure Inpt VTE Proph given/why not?: Elissa Swartz, TAL's
[2017-04-28 08:12] LABS: BUN/CREATININE RATIO 21.3 (10-20); CALCIUM 7.9 mg/dl (8.5-10.1); CREATININE 0.89 mg/dl (0.60-1.20); MAGNESIUM 1.6 mg/dl (1.8-2.4); POTASSIUM 3.6 mmol/L (3.5-5.1)
[2017-04-28] MEDS ORDERED: HYDROCHLOROTHIAZIDE 25 MG TAB PO SCH (09:00)
[2017-04-28] MEDS: MAGNESIUM CHLORIDE 64MG DELAYED REL TAB PO SCH (09:07)
[2017-04-28] MEDS: POTASSIUM CHLORIDE 10 MEQ TABCR PO SCH (09:07)
--- NOTE | 2017-04-28 09:35 | Anesthesiology Progress Note ---
Anesthesia Post Op Note Date & Time Apr 28, 2017 at 09:35 Vital Signs Pain Intensity: 0.0 Vital Signs Past 12 Hours Date Time Temp Pulse Resp B/P (MAP) Pulse Ox O2 Delivery O2 Flow Rate FiO2 04/28/17 08:09 Room Air 04/28/17 07:34 36.4 72 18 101/62 (75) 93 Room Air 04/28/17 03:20 36.8 81 18 114/66 (82) 94 Room Air 04/27/17 23:25 36.3 83 16 116/64 (81) 95 Room Air 04/27/17 23:20 Room Air 04/27/17 21:45 94 Room Air Notes Mental Status: alert / awake / arousable, participated in evaluation Pt Amnestic to Procedure: Yes Nausea / Vomiting: adequately controlled Pain: adequately controlled Airway Patency, RR, SpO2: stable & adequate BP & HR: stable & adequate Hydration State: stable & adequate Anesthetic Complications: no major complications apparent
--- NOTE | 2017-04-28 10:54 | Hospitalist Progress Note ---
Hospitalist Progress Note Date of Service Apr 28, 2017. (Rosangela Taylor ., RINA) Subjective Pt evaluation today including: conversation w/ patient, physical exam, lab review, review of inpatient medication list Voiding: no voiding problems Patient feeling well. Worked w/ PT and showered this AM w/out significant difficulties. Pain is well controlled. No BM/flatus postop. Eating and drinking OK. Patient denies any fever, chills, sweats, lightheadedness, dizziness, vision changes, CP, palpitations, edema, SOB, wheezing, cough, abdominal pain, nausea, vomiting, diarrhea, urinary symptoms, melena, numbness/tingling, weakness, anxiety/depression, active bleeding, or new skin discoloration/changes. (Rosangela Taylor ., PIEROC) Medications Current Inpatient Medications Medications (Trade) Dose Ordered Sig/Nata Route Start Time Stop Time Status Last Admin Dose Admin Dexamethasone Sodium Phosphate 6 mg/Syringe 1.5 ml @ 1 mls/min Q8H IV 04/27/17 22:00 04/28/17 14:02 04/28/17 05:53 1 MLS/MIN Promethazine HCl 12.5 mg/Sodium Chloride 50.5 ml @ 202 mls/hr Q6H PRN IV 04/27/17 13:30 05/27/17 13:29 Ondansetron HCl (Zofran Inj) 4 mg Q6H PRN IV 04/27/17 13:30 05/27/17 13:29 04/27/17 19:54 4 MG Metoclopramide HCl (Reglan Inj) 10 mg Q6H PRN IV 04/27/17 13:30 05/27/17 13:29 Lorazepam (Ativan Tab) 0.5 mg Q8H PRN PO 04/27/17 13:30 05/27/17 13:29 Lorazepam 0.5 mg/ Syringe 1 ml @ 1 mls/min Q8H PRN IV 04/27/17 13:30 05/27/17 13:29 Pneumococcal Polysaccharide Vaccine 1 ea PRN PRN N/A 04/27/17 13:30 05/27/17 13:29 Influenza Virus Vacc Triv Types A&B 1 ea PRN PRN N/A 04/27/17 13:30 05/27/17 13:29 Polyethylene (Miralax Powder Packet) 17 gm Q6 PO 04/29/17 06:00 05/29/17 05:59 Bisacodyl (Dulcolax Supp) 10 mg DAILY PRN OR 04/27/17 13:30 05/27/17 13:29 Magnesium Hydroxide (Milk Of Magnesia Susp) 30 ml DAILY PRN PO 04/27/17 13:30 05/27/17 13:29 Hydromorphone HCl (Dilaudid Inj) 0.5 mg Q3H PRN IV 04/28/17 06:00 05/12/17 05:59 Oxycodone HCl (Roxicodone Immediate Rel Tab) 5-10mg prn moderate to sev... Q4H PRN PO 04/28/17 06:00 05/12/17 05:59 04/28/17 09:56 5 MG Acetaminophen (Tylenol Tab) 1,000 mg Q8H PRN PO 04/27/17 13:30 05/27/17 13:29 Acetaminophen 100 ml @ 400 mls/hr Q8H PRN IV 04/27/17 13:30 05/27/17 13:29 Naloxone HCl (Narcan Inj) 0.1 mg Q5M PRN IV 04/27/17 13:30 05/27/17 13:29 Senna/Docusate Sodium (Senokot S Tab) 2 tab HS PO 04/27/17 21:00 05/27/17 20:59 04/27/17 21:19 2 TAB Sodium Biphosphate/ Sodium Phosphate (Fleet Enema) 132 ml ONE PRN OR 04/27/17 13:30 05/27/17 13:29 Hydroxyzine HCl (Vistaril Tab) 25 mg Q8H PRN PO 04/27/17 13:30 05/27/17 13:29 Al Hydroxide/Mg Hydroxide (Maalox Susp) 30 ml Q6H PRN PO 04/27/17 13:30 05/27/17 13:29 Famotidine (Pepcid Tab) 20 mg Q12 PRN PO 04/27/17 13:30 05/27/17 13:29 Diphenhydramine HCl (Benadryl Cap) 25 mg Q6H PRN PO 04/27/17 13:30 05/27/17 13:29 Amlodipine Besylate (Norvasc Tab) 5 mg QAM PO 04/28/17 09:00 05/28/17 08:59 Aspirin (Ecotrin Tab) 81 mg QPM PO 04/27/17 21:00 05/27/17 20:59 04/27/17 21:19 81 MG Atenolol (Tenormin Tab) 50 mg QAM PO 04/28/17 09:00 05/28/17 08:59 Atorvastatin Calcium (Lipitor Tab) 40 mg HS PO 04/27/17 21:00 05/27/17 20:59 04/27/17 21:19 40 MG Hydromorphone HCl (Dilaudid Inj) 1 mg Q3H PRN IV 04/28/17 06:00 05/12/17 05:59 Hydralazine HCl (HydrALAZINE INJ) 10 mg Q6H PRN IV. 04/27/17 16:00 05/27/17 15:59 Magnesium Chloride (Slow-Mag Tab) 64 mg QAM PO 04/28/17 09:00 05/28/17 08:59 04/28/17 09:07 64 MG Potassium Chloride (Klor-Con M10) 20 meq DAILY PO 04/28/17 09:00 05/28/17 08:59 04/28/17 09:07 20 MEQ (Rosangela Taylor, PIEROC) Objective Vital Signs Date Time Temp Pulse Resp B/P (MAP) Pulse Ox O2 Delivery O2 Flow Rate FiO2 04/28/17 08:09 Room Air 04/28/17 07:34 36.4 72 18 101/62 (75) 93 Room Air 04/28/17 03:20 36.8 81 18 114/66 (82) 94 Room Air 04/27/17 23:25 36.3 83 16 116/64 (81) 95 Room Air 04/27/17 23:20 Room Air 04/27/17 21:45 94 Room Air 04/27/17 19:50 36.2 74 16 126/69 (88) 98 Nasal Cannula 2.0 04/27/17 17:59 36.8 65 16 127/77 (94) 98 Nasal Cannula 2.0 04/27/17 17:10 36.1 60 16 144/80 (101) 100 Nasal Cannula 2.0 04/27/17 16:45 36.4 04/27/17 16:07 34.6 60 16 146/82 (103) 100 Nasal Cannula 2.0 04/27/17 15:35 33.7 57 16 153/83 (106) 100 Nasal Cannula 2.0 04/27/17 15:00 Nasal Cannula 2.0 04/27/17 15:00 Nasal Cannula 04/27/17 15:00 36.5 58 18 153/82 (105) 99 Nasal Cannula 2.0 04/27/17 14:45 59 15 139/79 100 Nasal Cannula 3 04/27/17 14:35 60 14 142/74 100 Nasal Cannula 3 04/27/17 14:25 36.2 63 14 144/72 99 Nasal Cannula 3 04/27/17 14:15 62 23 145/70 100 Nasal Cannula 3 04/27/17 14:05 62 19 142/72 100 Oxymask 10 04/27/17 13:55 65 17 123/68 99 Oxymask 10 04/27/17 13:45 36.1 84 16 147/79 100 Oxymask 10 (Rosangela Taylor, PA-C) Physical Exam General Appearance: no apparent distress Eyes: normal inspection, PERRL ENT: hearing grossly normal Neck: supple Respiratory/Chest: lungs clear Cardiovascular: regular rate, rhythm Abdomen: normal bowel sounds, non tender, soft Extremities: no pedal edema, no calf tenderness Neurologic/Psychiatric: alert, normal mood/affect, oriented x 3 Skin: normal color, warm/dry, no rash (Rosangela Taylor, PA-C) Laboratory Results Last 24 Hours Test 04/28/17 07:06 White Blood Count 14.19 K/uL Red Blood Count 3.31 M/uL Hemoglobin 10.4 g/dL Hematocrit 31.7 % Mean Corpuscular Volume 95.8 fL Mean Corpuscular Hemoglobin 31.4 pg Mean Corpuscular Hemoglobin Concent 32.8 g/dl Platelet Count 247 K/uL Mean Platelet Volume 10.8 fL Neutrophils (%) (Auto) 86.8 % Lymphocytes (%) (Auto) 7.1 % Monocytes (%) (Auto) 5.6 % Eosinophils (%) (Auto) 0.0 % Basophils (%) (Auto) 0.1 % Neutrophils # (Auto) 12.33 K/uL Lymphocytes # (Auto) 1.01 K/uL Monocytes # (Auto) 0.79 K/uL Eosinophils # (Auto) 0.00 K/uL Basophils # (Auto) 0.01 K/uL RDW Standard Deviation 47.5 fL RDW Coefficient of Variation 13.7 % Immature Granulocyte % (Auto) 0.4 % Immature Granulocyte # (Auto) 0.05 K/uL Sodium Level 137 mmol/L Potassium Level 3.6 mmol/L Chloride Level 100 mmol/L Carbon Dioxide Level 27 mmol/L Anion Gap 11.0 mmol/L Blood Urea Nitrogen 19 mg/dl Creatinine 0.89 mg/dl Est Creatinine Clear Calc Drug Dose 39.9 ml/min Estimated GFR () 72.5 Estimated GFR (Non- 62.5 BUN/Creatinine Ratio 21.3 Random Glucose 136 mg/dl Calcium Level 7.9 mg/dl Magnesium Level 1.6 mg/dl (Rosangela Taylor ., PA-C) Assessment and Plan Patient is a 77 y/o female, with PMHx of HTN, paroxysmal a.fib , h/o TIA, hypokalemia , and hypomagnesemia , s/p lumbar surgery by Dr. Alvares on 04/27. s/p lumbar surgery by Dr. Alvares on 04/27: - Surgical management, pain management, PT/OT, and DVT prophylaxis as per primary team - Follow postop CBC and PRP- STABLE -- Leukocytosis, likely secondary to IV steroids/postop response- follow CBC - Encourage incentive spirometer - Bowel regimen ordered HTN, paroxysmal a.fib, HLD- follows w/ Dr. Mohan : - Hold Lisinopril 120 mg daily and HCTZ 12.5 mg daily pending postop PRP/volume status- BPs low/normal, will continue to hold - Continue Norvasc 5 mg daily, Atenolol 50 mg daily, Lipitor 40 mg HS - Hydralazine IV PRN Hypokalemia: Continue Potassium supplement Hypomagnesemia: Continue Mag supplement GI prophylaxis: Pepcid DVT prophylaxis: ASA 81 mg daily as per surgical team Code Status: LEVEL I, FULL Dispo: As per primary team Thank you for this consultation. We will continue to follow through hospital stay. (Rosangela Taylor, PA-C) I agree with PA assessment and plan and have seen and examined pt myself VSS Labs reviewed Leukocytosis likely reactive Hg 10, likely from acute blood loss anemia, asymptomatic Resting comfortably in bed Pain controlled HTN stable, cont home meds Dispo and DVT ppx per primary team (Camden Richardson D.O.)
[2017-04-28 11:12] VITALS: BP 117/65; PULSE 70; TEMP 36.5; O2SAT 94
--- NOTE | 2017-04-28 11:20 | Progress Note ---
Progress Note Date of Service Apr 28, 2017. Progress Note Patient is postop day #1 status post lumbar decompression fusion. Her back pain is controlled. Leg pain improved. On exam she is sitting at bedside has excellent strength testing. Assessment status post lumbar decompression fusion replant this time we will initiate physical therapy advance her bowel regimen anticipate possible home Tuesday.
[2017-04-28] MEDS: ACETAMINOPHEN 500 MG TAB PO PRN ×2 (11:30→19:40)
[2017-04-28] MEDS: ATENOLOL 50 MG PO SCH (12:45)
[2017-04-28] MEDS: AMLODIPINE BESYLATE 5 MG TAB PO SCH (12:45)
[2017-04-28 15:00] VITALS: BP 113/69; PULSE 71; TEMP 36.6; O2SAT 95
[2017-04-28] MEDS: ATORVASTATIN 40 MG TAB PO SCH (20:30)
[2017-04-28] MEDS: ASPIRIN 81 MG ECTAB PO SCH (20:30)
[2017-04-28] MEDS: DOCUSATE SODIUM/SENNA 50/8.6MG TAB PO SCH (20:30)
[2017-04-28 22:57] VITALS: BP 113/65; PULSE 73; TEMP 36.6; O2SAT 92
[2017-04-29] MEDS ORDERED: POLYETHYLENE (MIRALAX) 17 GM PACK PO SCH (06:00)
[2017-04-29 06:02] LABS: HEMATOCRIT 28.3 % (37-47); MEAN CELL VOLUME 96.3 fL (80-100); MEAN CORPUSCULAR HEMOGLOBIN 32.7 pg (25-34); MEAN CORPUSCULAR HGB CONC 33.9 g/dl (32-36); MEAN PLATELET VOLUME 10.2 fL (7.4-10.4); PLATELET COUNT 202 K/uL (130-400); RED BLOOD COUNT 2.94 M/uL (4.2-5.4); WHITE BLOOD COUNT 16.91 K/uL (4.8-10.8)
[2017-04-29] MEDS: ACETAMINOPHEN 500 MG TAB PO PRN (06:48)
[2017-04-29 07:37] VITALS: BP 110/68; PULSE 62; TEMP 36.3; O2SAT 97
[2017-04-29 08:30] VITALS: O2SAT 97
[2017-04-29] MEDS: ATENOLOL 50 MG PO SCH (08:48)
[2017-04-29] MEDS: AMLODIPINE BESYLATE 5 MG TAB PO SCH (08:48)
[2017-04-29] MEDS: POTASSIUM CHLORIDE 10 MEQ TABCR PO SCH (08:48)
[2017-04-29] MEDS ORDERED: NURSING VERBAL MED ORDER ONE (09:15)
[2017-04-29] MEDS: MAGNESIUM CHLORIDE 64MG DELAYED REL TAB PO SCH (09:22)
[2017-04-29 10:34] VITALS: BP 110/68; PULSE 62; TEMP 36.3; O2SAT 97
--- NOTE | 2017-04-29 12:49 | Discharge Summary ---
Orthopedic Discharge Summary Admission Date/Reason Apr 27, 2017 at 11:30 Lumbar Spinal Stenosis. Discharge Date/Disposition Apr 29, 2017 Home Diagnosis Principal Diagnosis: Lumbar spinal stenosis Admission Physical Exam As per Admitting History & Physical. Hospital Course Patient 1 lumbar decompression fusion tolerated this well and taken to the orthopedic floor postop we. Postoperative day #1 she was up in amatory leg pain markedly improved progressed to postoperative day #2 without incident. Socially she was discharged home discharge orders and instructions found on the chart for further review. Discharge Instructions Please refer to the electronic Patient Visit Report (Discharge Instructions) for additional information.
== END 2017-04-29 11:38 | disposition home or self-care (01) | DRG 455 ==
LOC: C.ACU 09:38 → C.3E 11:30 → ENRESERV 14:23
PROVIDERS: ADMIT Orthopaedic Surgery Orthopaedic Surgery of the Spine; ATTEND Orthopaedic Surgery Orthopaedic Surgery of the Spine
PROC: 0SG0071 Fusion of Lumbar Vertebral Joint with Autologous Tissue Substitute, Posterior Approach, Posterior Column, Open Approach (ICD-10-PCS; principal; 2017-04-27 11:45)
PROC: 0SG00AJ Fusion of Lumbar Vertebral Joint with Interbody Fusion Device, Posterior Approach, Anterior Column, Open Approach (ICD-10-PCS; principal; 2017-04-27 11:45)
PROC: 0ST20ZZ Resection of Lumbar Vertebral Disc, Open Approach (ICD-10-PCS; principal; 2017-04-27 11:45)
PROC: 01NB0ZZ Release Lumbar Nerve, Open Approach (ICD-10-PCS; principal; 2017-04-27 11:45)
DX: M48.061 Spinal stenosis, lumbar region without neurogenic claudication (principal); M43.16 Spondylolisthesis, lumbar region; M51.26 Other intervertebral disc displacement, lumbar region; I10 Essential (primary) hypertension; Z86.73 Personal history of transient ischemic attack (TIA), and cerebral infarction without residual deficits; Z85.828 Personal history of other malignant neoplasm of skin; E87.6 Hypokalemia; E78.5 Hyperlipidemia, unspecified; E83.42 Hypomagnesemia; Z98.1 Arthrodesis status

== ENCOUNTER → 2017-07-07 | Outpatient (CLI) | payer OTHER ==
[~2017-07-07] MED LIST changes: -ASPI325T39 PO; -ATROPINE SULFATE 0.1 MG/ML 5ML SYR IV PRN; -CEFAZOLIN 1000MG IV PUSH 5 ML IV SCH; -EpHEDrine SULFATE INJ 50 MG/ML AMP IV PRN; -FENTANYL CITRATE INJ 50 MCG/1 ML 2 ML VIAL IV PRN; -HYDROmorphone INJ 1 MG/ML SYR IV PRN; -LACTATED RINGER'S 1000ML 1,000 ML IV SCH; -LISI-461 PO; +LSN20 PO; -ONDANSETRON INJ 2 MG/ML 2 ML VIAL IV PRN; +RXC5 PO
[2017-07-07 14:02] LABS: ALBUMIN 3.7 gm/dl (3.4-5.0); ALT/SGPT 25 U/L (12-78); AST/SGOT 21 U/L (15-37); BLOOD UREA NITROGEN 16 mg/dl (7-18); CALCIUM 8.8 mg/dl (8.5-10.1); CARBON DIOXIDE 31 mmol/L (21-32); CREATININE 0.77 mg/dl (0.60-1.20); GLUCOSE 95 mg/dl (70-99); SODIUM 132 mmol/L (136-145)
[2017-07-07 14:05] LABS: ALKALINE PHOSPHATASE 87 U/L (45-117); CHOLESTEROL 145 mg/dl (0-200); LDL CHOLESTEROL CALCULATED 75 mg/dl; TOTAL PROTEIN 7.4 gm/dl (6.4-8.2)
== END | disposition home or self-care (01) ==
LOC: C.LABPVFM 09:07
PROVIDERS: ATTEND Family Medicine
DX: Z86.73 Personal history of transient ischemic attack (TIA), and cerebral infarction without residual deficits (principal); E78.5 Hyperlipidemia, unspecified; I10 Essential (primary) hypertension; E83.42 Hypomagnesemia; M54.5 Low back pain

== ENCOUNTER → 2017-07-13 | Outpatient (CLI) | payer OTHER | END | disposition home or self-care (01) | LOC: C.LABPVFM 16:31 | PROVIDERS: ATTEND Family Medicine | DX: N39.0 Urinary tract infection, site not specified (principal) ==

== ENCOUNTER → 2017-09-01 | Outpatient (CLI) | payer OTHER ==
--- NOTE | 2017-09-02 15:36 | MAMMOGRAPHY REPORT ---
BILATERAL DIGITAL SCREENING MAMMOGRAM TOMOSYNTHESIS WITH CAD: 09/01/2017 CLINICAL HISTORY: Routine screening. TECHNIQUE: Breast tomosynthesis in addition to standard 2D mammography was performed. Current study was also evaluated with a Computer Aided Detection (CAD) system. COMPARISON: Comparison is made to exams dated: 08/27/2016 mammogram, 08/26/2015 mammogram, 08/22/2014 m ammogram, 03/03/2012 mammogram, 03/02/2011 mammogram, and 02/24/2010 mammogram - [facility] enter. BREAST COMPOSITION: There are scattered areas of fibroglandular density in both breasts. FINDINGS: No suspicious masses, calcifications, or areas of architectural distortion are noted in ei ther breast. There has been no significant interval change compared to prior exams. IMPRESSION: ACR BI-RADS CATEGORY 1: NEGATIVE There is no mammographic evidence of malignancy. A 1 year screening mammogram is recommended. The pa tient will receive written notification of the results. Approximately 10% of breast cancers are not detected with mammography. A negative mammographic report should not delay biopsy if a clinically suggestive mass is present. Kaylie Lomeli M.D. ah/:09/01/2017 16:21:28 Swift Tender: Jose Angel YIN(Daryn)(M), [facility] letter sent: Normal 1/2 BI-RADS Code: ACR BI-RADS Category 1: Negative
== END | disposition home or self-care (01) ==
LOC: C.MAMM 15:31
PROVIDERS: ATTEND Family Medicine
DX: Z12.31 Encounter for screening mammogram for malignant neoplasm of breast (principal)

== ENCOUNTER → 2018-01-03 | Outpatient (CLI) | payer OTHER ==
[~2018-01-03] MED LIST changes: -AMLO-110 PO; +AMLO5TAB3 PO; +LISI-726 PO; -LSN20 PO
[2018-01-03 13:48] LABS: ALBUMIN 3.6 gm/dl (3.4-5.0); ALKALINE PHOSPHATASE 70 U/L (45-117); ALT/SGPT 22 U/L (12-78); AST/SGOT 21 U/L (15-37); BLOOD UREA NITROGEN 15 mg/dl (7-18); CALCIUM 8.7 mg/dl (8.5-10.1); CARBON DIOXIDE 29 mmol/L (21-32); CHOLESTEROL 125 mg/dl (0-200); CREATININE 0.78 mg/dl (0.60-1.20); GLUCOSE 91 mg/dl (70-99); LDL CHOLESTEROL CALCULATED 67 mg/dl; POTASSIUM 3.7 mmol/L (3.5-5.1); SODIUM 134 mmol/L (136-145); TOTAL PROTEIN 6.7 gm/dl (6.4-8.2)
== END | disposition home or self-care (01) ==
LOC: C.LABPVFM 08:59
PROVIDERS: ATTEND Family Medicine
DX: E78.5 Hyperlipidemia, unspecified (principal); I10 Essential (primary) hypertension; M54.5 Low back pain; E87.8 Other disorders of electrolyte and fluid balance, not elsewhere classified; Z86.73 Personal history of transient ischemic attack (TIA), and cerebral infarction without residual deficits